=== PATIENT | female | born 1945 | race Caucasian/White ===

== ENCOUNTER 2022-08-04 19:36 | Emergency (ER) | payer OTHER ==
[2022-08-04 19:49] VITALS: TEMP 97; BMI 33.2
[2022-08-04] MEDS ORDERED: LACTATED RINGERS SOLUTION 1000 ML INFUS.BAG IV ONE (20:03)
[2022-08-04] MEDS ORDERED: ADENOSINE 6 MG/2 ML VIAL IVPUSH ONE ×2 (20:07→20:24)
[2022-08-04] MEDS ORDERED: dilTIAZem HCL 125 MG/25 ML - 25 ML VIAL ONE (20:16)
[2022-08-04] MEDS ORDERED: dilTIAZem HCL 50 MG/10 ML - 10 ML VIAL IVPUSH ONE ×2 (20:24)
[2022-08-04] MEDS ORDERED: dilTIAZem HCL 60 MG TABLET ONE (20:39)
[2022-08-04] MEDS ORDERED: dilTIAZem HCL 60 MG TABLET PO ONE (21:01)
[2022-08-04] MEDS ORDERED: HEPARIN NA (PORCINE) 5,000 UNITS/ML 1ML VIAL IVPUSH ONE (21:22)
[2022-08-04] MEDS ORDERED: METOPROLOL TARTRATE 25 MG TABLET (FP) PO ONE ×2 (21:22→22:09)
[2022-08-04 21:24] LABS: BASO % 0.8 % (0-2.0); EOS % 2.4 % (0-4.5); HEMATOCRIT 41.2 % (32.4-45.2); HEMOGLOBIN 14.1 GM/dL (10.7-15.3); LYMPH % 33.1 % (8-40); MCH 34.2 pg (25.7-33.7); MCHC 34.2 g/dl (32.0-36.0); MEAN CELL VOLUME 100.1 fl (80-96); MEAN PLT VOLUME 8.4 fl (7.5-11.1); MONO % 10.6 % (3.8-10.2); NEUT % 53.1 % (42.8-82.8); PLATELET COUNT 220 10^3/uL (134-434); RBC 4.11 M/mm3 (3.60-5.2); RDW 13.6 % (11.6-15.6); WHITE BLOOD COUNT 6.9 K/mm3 (4.0-10.0)
[2022-08-04] MEDS ORDERED: METOPROLOL TARTRATE 25 MG TABLET (FP) ONE ×3 (21:26→22:15)
[2022-08-04] MEDS ORDERED: HEPARIN INFUSION - 25,000 UNITS/500 ML INFUS.BAG IVPB ONE (21:26)
[2022-08-04] MEDS ORDERED: HEPARIN NA (PORCINE) 5,000 UNITS/ML 1ML VIAL ONE (21:26)
[2022-08-04] MEDS ORDERED: HEPARIN - 25,000 UNIT in SODIUM CHLORIDE 495 ML IV SCH (21:30)
[2022-08-04 21:51] LABS: CALCIUM 8.5 mg/dL (8.5-10.1)
[2022-08-04 21:52] LABS: ALBUMIN 3.6 g/dl (3.4-5.0); BLOOD UREA NITROGEN 15.5 mg/dL (7-18); MAGNESIUM 2.4 mg/dL (1.8-2.4)
[2022-08-04 21:56] LABS: CREATININE 0.8 mg/dL (0.55-1.3)
[2022-08-04 21:58] VITALS: PULSE 143; RESP 18
[2022-08-04] MEDS ORDERED: METOPROLOL TARTRATE 5 MG/5 ML VIAL IVPUSH ONE (22:19)
[2022-08-04] MEDS ORDERED: METOPROLOL TARTRATE 5 MG/5 ML VIAL ONE (22:29)
[2022-08-04 23:18] LABS: BILIRUBIN,TOTAL 0.4 mg/dL (0.2-1)
[2022-08-04] MEDS ORDERED: SODIUM CHLORIDE 0.9% 500 ML INFUS.BAG IV ONE (23:48)
[2022-08-05 00:23] VITALS: BP 131/65
== END 2022-08-05 01:20 | disposition short-term general hospital (02) ==
LOC: JER 19:36
PROC: 3E033GC Introduction of Other Therapeutic Substance into Peripheral Vein, Percutaneous Approach (ICD-10-PCS; principal; 2022-08-04)
DX: I48.92 Unspecified atrial flutter (principal); R94.31 Abnormal electrocardiogram [ECG] [EKG]
CPT/HCPCS: 0241U-QW; 36415; 71045-TC-FY; 80053; 83735; 84443; 84484; 85025; 85379; 93005; 93010; 99291; J1644